=== PATIENT | male | born 1980 | race Two or more races ===

== ENCOUNTER 2025-06-24 18:35 | Emergency (ER) | payer OTHER ==
[~2025-06-24] VITALS: Ht 170.2 cm; Wt 81.8 kg
[2025-06-24 18:43] VITALS: TEMP 98.9
[2025-06-24] MEDS ORDERED: SODIUM CHLORIDE 0.9% 100 ML ONE (18:56)
[2025-06-24] MEDS ORDERED: IOHEXOL 350 MG/ML 100 ML VIAL ONE (18:56)
[2025-06-24 19:29] LABS: PLATELET COUNT (AUTO) 316 K/uL (150-450); RED BLOOD CELL COUNT(AUTO) 5.24 MIL/uL (4.50-5.90); RED CELL DISTRIBUTION WIDTH 14.5 % (11.5-14.5); WHITE BLOOD COUNT (AUTO) 7.5 K/uL (4.5-11.0)
[2025-06-24 19:39] LABS: CALCIUM, TOTAL 9.1 mg/dL (8.8-10.5); CREATININE 0.88 mg/dL (0.60-1.30); GLOMERULAR FILTR. RATE CALC > 60 mL/min (>60); GLUCOSE,RANDOM 322 mg/dL (70-110); SODIUM SERUM 134 mmol/L (136-145); UREA NITROGEN, BLOOD 26 mg/dL (7-18)
[2025-06-24] MEDS: VANCOMYCIN 1.25 GM/WATER(PEG) 250 ML IV ONE (19:42)
[2025-06-24] MEDS: MORPHINE SULFATE 2 MG/ML SYRINGE IVP ONE (19:42)
[2025-06-24] MEDS: AMPICILLIN SODIUM/SULBACTAM NA 3 GM in SODIUM CHLORIDE 0.9% 100 ML IV ONE (19:42)
[2025-06-24 19:49] LABS: LACTIC ACID 1.7 mmol/L (0.4-2.0)
[2025-06-24] MEDS: SODIUM CHLORIDE 0.9% 1,000 ML IV ONE (20:23)
[2025-06-24 23:37] VITALS: BP 125/71; PULSE 72; RESP 16; O2SAT 97
== END 2025-06-25 01:47 | disposition short-term general hospital (02) ==
LOC: EMS 18:35
DX: L02.01 Cutaneous abscess of face (principal); Z79.52 Long term (current) use of systemic steroids
CPT/HCPCS: 99285; 96365; 70487; 96366; 96375; 80048; 83605; 85025; 87040; 36415; 96368; Q9967; J2270; J0295; J7050; J3490